=== PATIENT | female | born 1950 | race Caucasian/White ===

== ENCOUNTER 2017-06-27 01:33 | Emergency (ER) | payer BC ==
[2017-06-27] MEDS ORDERED: Sodium Chloride 0.9% 5 ML Syringe FLUSH PRN (01:44)
[2017-06-27] MEDS ORDERED: HYDROmorphone 1 MG/ML Syringe IVPUSH ONE (02:16)
[2017-06-27] MEDS ORDERED: Sodium Chloride 0.9% 1,000 ML IV ONE (02:18)
[2017-06-27] MEDS ORDERED: HYDROmorphone 1 MG/ML Syringe ONE (02:19)
--- NOTE | 2017-06-27 02:29 | EDM.PDOC ---
ED HPI GENERAL MEDICAL PROBLEM - General Chief Complaint: Abdominal Pain Stated Complaint: abd pain Time Seen by Provider: 06/27/17 02:05 Source of Information: Reports: Patient History Limitations: Reports: No Limitations - History of Present Illness INITIAL COMMENTS - FREE TEXT/NARRATIVE: Patient presents with abdominal pain for 30 hours; started evening at 8 -9pm. Started with some diarrhea and the last couple of hours has been bloody diarrhea and vomiting. Vomiting has been mostly dry heaves and not bloody. Pain is 8-9/10. Approximately ten years ago she had similar pain (but milder and lasted months) that turned out to be H pylori. She had been evaluated for two weeks checking everything before they discovered the H pylori. She was treated for it at that time. She still has her gallbladder; appendix is gone. She denies heart problems, chest pain, arm/neck/jaw pain. She smokes 1/2 ppd and has smoked for at least 40 years. She doesn't routinely use ASA or NSAIDS but took Advil two days ago for a headache. She hasn't had any recent foreign travel and denies any antibiotic use recently. Lower Abdominal Pain Score (Numeric/FACES): 2 - Related Data Allergies Allergy/AdvReac Type Severity Reaction Status Date / Time No Known Drug Allergies Allergy Cannot Verified 06/27/17 01:36 Remember Home Meds: Home Meds Xx Tumeric 300 mg PO DAILY 06/27/17 [History] Xx Vitamine B 12 200 PO DAILY 06/27/17 [History] Xxmagnesium 250 mg PO DAILY 06/27/17 [History] Zinc Gluconate [Zinc] 30 mg PO DAILY 06/27/17 [History] ED ROS GENERAL - Review of Systems Review Of Systems: See Below Constitutional: Reports: Chills. Denies: Fever HEENT: Denies: Throat Pain, Vision Change Respiratory: Denies: Shortness of Breath, Cough Cardiovascular: Denies: Chest Pain, Lightheadedness, Syncope GI/Abdominal: Reports: Abdominal Pain, Bloody Stool, Diarrhea, Vomiting. Denies : Hematemesis : Denies: Dysuria, Flank Pain Musculoskeletal: Denies: Neck Pain, Shoulder Pain, Arm Pain Skin: Denies: Cyanosis, Jaundice, Mottled, Diaphoresis Neurological: Denies: Confusion, Headache, Seizure, Syncope, Trouble Speaking, Difficulty Walking Psychiatric: Reports: Anxiety. Denies: Agitation ED EXAM, GI/ABD - Physical Exam Exam: See Below Exam Limited By: No Limitations General Appearance: Alert, WD/WN, Mild Distress Eyes: Bilateral: Normal Appearance, EOMI Ears: Normal External Exam, Hearing Grossly Normal Nose: Normal Inspection, No Blood Throat/Mouth: Normal Inspection, Normal Lips, Normal Voice, No Airway Compromise Head: Atraumatic, Normocephalic Neck: Full Range of Motion Respiratory/Chest: No Respiratory Distress, Lungs Clear, Normal Breath Sounds, No Accessory Muscle Use Cardiovascular: Normal Peripheral Pulses, Regular Rate, Rhythm, No Murmur GI/Abdominal Exam: Normal Bowel Sounds, Soft, No Organomegaly, No Distention, Tender (throughout; worse epigastric and right side) Rectal (Female) Exam: Bloody Stool (dark red/maroon color), Heme + Stool (from sample in toilet hat) Back Exam: No: CVA Tenderness (L), CVA Tenderness (R) Extremities: Normal Inspection, Normal Range of Motion, Non-Tender, No Pedal Edema Neurological: Alert, Oriented, Normal Cognition, No Motor/Sensory Deficits Psychiatric: Normal Affect, Normal Mood Skin Exam: Warm, Dry, Intact, No Rash, Pallor (mild pallor possible but not sure of her baseline) Course - Vital Signs Last Recorded V/S: Last Vital Signs Temp 98.6 F 06/27/17 01:35 Pulse 64 06/27/17 03:00 Resp 22 H 06/27/17 02:30 BP 139/60 06/27/17 03:00 Pulse Ox 100 06/27/17 02:30 - Orders/Labs/Meds Orders: Active Orders 24 hr Category Date Time Status Abdomen Pelvis w Cont [CT] Stat Exams 06/27/17 02:20 Ordered OVA & PARASITES Stat Lab 06/27/17 02:26 Ordered STOOL CULTURE/SHIGA TOXIN [MREF] Stat Lab 06/27/17 02:26 Uncollected Sodium Chloride 0.9% [Syrex Flush] Med 06/27/17 01:44 Active 5 ml FLUSH Q8HR PRN Saline Lock Insert [OM.PC] Routine Oth 06/27/17 01:44 Ordered Medication Orders Sodium Chloride (Syrex Flush) 5 ml FLUSH Q8HR PRN PRN Reason: Keep Vein Open Labs: Laboratory Tests 06/27/17 06/27/17 06/27/17 Range/Units 01:55 01:55 01:55 WBC Cancelled Corrected WBC Cancelled RBC Cancelled Hgb Cancelled Hct Cancelled MCV Cancelled MCH Cancelled MCHC Cancelled RDW Cancelled Plt Count Cancelled MPV Cancelled Neut % (Auto) (50.0-70.0) % Lymph % (Auto) (20.0-40.0) % [place] % (Auto) (2.0-8.0) % Eos % (Auto) (1.0-3.0) % Baso % (Auto) (0.0-1.0) % Neut # (Auto) (2.5-7.0) 10^3/uL Lymph # (Auto) (1.0-4.0) 10^3/uL [place] # (Auto) (0.1-0.8) 10^3/uL Eos # (Auto) (0.1-0.3) 10^3/uL Baso # (Auto) (0.0-0.1) 10^3/uL Sodium 137 (136-145) mmol/L Potassium 3.7 (3.3-5.3) mmol/L Chloride 101 (98-115) mmol/L Carbon Dioxide 22.2 (21.0-32.0) mmol/L BUN 19 (6-25) mg/dL Creatinine 0.76 (0.51-1.17) mg/dL Est Cr Clr Drug Dosing 67.47 mL/min Estimated GFR (MDRD) > 60 mL/min Glucose 138 H (70-110) mg/dL Calcium 9.7 (8.7-10.3) mg/dL Total Bilirubin 0.5 (0.2-1.0) mg/dL AST 14 L (15-37) U/L ALT 21 (12-78) U/L Alkaline Phosphatase 68 (46-116) IU/L Total Protein 7.8 (6.4-8.2) g/dL Albumin 3.77 (3.00-4.80) g/dL Lipase 116 (73-393) U/L Specimen Type Urine Color (YELLOW) Urine Appearance (CLEAR) Urine pH (5.0-9.0) Ur Specific [place] (1.005-1.030) Urine Protein (NEGATIVE) mg/dL Urine Glucose (UA) (NEGATIVE) mg/dL Urine Ketones (NEGATIVE) mg/dL Urine Occult Blood (NEGATIVE) Urine Nitrite (NEGATIVE) Urine Bilirubin (NEGATIVE) Urine Urobilinogen (0.2-1.0) E.U./dL Ur Leukocyte Esterase (NEGATIVE) Urine RBC /HPF Urine WBC /HPF Ur Epithelial Cells /LPF Urine Bacteria (NONE TO FEW) /HPF Urine Mucus (NEGATIVE) /LPF H. pylori IgG Antibody Positive H (NEGATIVE) 06/27/17 06/27/17 Range/Units 02:25 03:35 WBC 16.3 H Corrected WBC RBC 4.63 Hgb 14.0 Hct 42.0 MCV 90.8 MCH 30.3 MCHC 33.4 RDW 13.6 Plt Count 429 H MPV 7.7 Neut % (Auto) 85.2 H (50.0-70.0) % Lymph % (Auto) 9.6 L (20.0-40.0) % [place] % (Auto) 4.8 (2.0-8.0) % Eos % (Auto) 0.2 L (1.0-3.0) % Baso % (Auto) 0.2 (0.0-1.0) % Neut # (Auto) 13.9 H (2.5-7.0) 10^3/uL Lymph # (Auto) 1.6 (1.0-4.0) 10^3/uL [place] # (Auto) 0.8 (0.1-0.8) 10^3/uL Eos # (Auto) 0.0 L (0.1-0.3) 10^3/uL Baso # (Auto) 0.0 (0.0-0.1) 10^3/uL Sodium (136-145) mmol/L Potassium (3.3-5.3) mmol/L Chloride (98-115) mmol/L Carbon Dioxide (21.0-32.0) mmol/L BUN (6-25) mg/dL Creatinine (0.51-1.17) mg/dL Est Cr Clr Drug Dosing mL/min Estimated GFR (MDRD) mL/min Glucose (70-110) mg/dL Calcium (8.7-10.3) mg/dL Total Bilirubin (0.2-1.0) mg/dL AST (15-37) U/L ALT (12-78) U/L Alkaline Phosphatase (46-116) IU/L Total Protein (6.4-8.2) g/dL Albumin (3.00-4.80) g/dL Lipase (73-393) U/L Specimen Type Urincc Urine Color Yellow (YELLOW) Urine Appearance Clear (CLEAR) Urine pH 6.0 (5.0-9.0) Ur Specific [place] 1.010 (1.005-1.030) Urine Protein Negative (NEGATIVE) mg/dL Urine Glucose (UA) Negative (NEGATIVE) mg/dL Urine Ketones Trace H (NEGATIVE) mg/dL Urine Occult Blood Trace-lysed H (NEGATIVE) Urine Nitrite Negative (NEGATIVE) Urine Bilirubin Negative (NEGATIVE) Urine Urobilinogen 0.2 (0.2-1.0) E.U./dL Ur Leukocyte Esterase Trace H (NEGATIVE) Urine RBC 0-5 /HPF Urine WBC 0-5 /HPF Ur Epithelial Cells Occasional /LPF Urine Bacteria Occasional (NONE TO FEW) /HPF Urine Mucus Few H (NEGATIVE) /LPF H. pylori IgG Antibody (NEGATIVE) Meds: Medications Generic Name Dose Route Start Last Admin Trade Name Freq PRN Reason Stop Dose Admin Sodium Chloride 5 ml 06/27/17 01:44 Syrex Flush FLUSH Q8HR PRN Keep Vein Open Discontinued Medications Generic Name Dose Route Start Last Admin Trade Name Freq PRN Reason Stop Dose Admin Ciprofloxacin 500 mg 06/27/17 05:04 06/27/17 05:11 Ciprofloxacin Hcl PO 06/27/17 05:05 500 mg ONETIME ONE Administration Hydromorphone HCl 1 mg 06/27/17 02:16 06/27/17 02:25 Dilaudid IVPUSH 06/27/17 02:17 1 mg ONETIME ONE Administration Hydromorphone HCl Confirm 06/27/17 02:19 06/27/17 02:46 Dilaudid Administered 06/27/17 02:20 Not Given Dose 1 mg .ROUTE .STK-MED ONE Sodium Chloride 1,000 mls @ 999 mls/hr 06/27/17 02:18 06/27/17 02:25 Normal Saline IV 06/27/17 03:18 999 mls/hr .BOLUS ONE Administration Iopamidol 75 ml 06/27/17 02:54 Isovue-300 (61%) IV 06/27/17 02:55 . DIRECTED PRN FOR RADIOLOGY EXAM Ondansetron HCl 4 mg 06/27/17 02:32 06/27/17 02:44 Zofran IVPUSH 06/27/17 02:33 4 mg ONETIME ONE Administration Ondansetron HCl Confirm 06/27/17 02:32 06/27/17 02:47 Zofran Administered 06/27/17 02:33 Not Given Dose 4 mg .ROUTE .STK-MED ONE Sodium Chloride 50 ml 06/27/17 03:00 06/27/17 05:11 Normal Saline FLUSH 06/27/17 03:01 50 ml ONETIME ONE Administration - Re-Assessments/Exams Free Text/Narrative Re-Assessment/Exam: 06/27/17 04:18 Dilaudid 1 mg is very successfully controlling her pain. WBC is 16.3 with 85% neut. Hg is 14.0. H pylori is positive. C diff is negative. Discussed with pt that the severe pain and red bloody stools are concerning for perforation and severe bleeding. We are waiting for CT results. 1 liter of NS IV is in. Pt tells me she had two episodes of bloody diarrhea tonight at home and has had two more in ER. 06/27/17 04:39 CT shows diffuse thickening of colonic wall consistent with colitis. I called and discussed the additional lab information of positive H pylori and WBC with Dr. Escoto the radiologist and he definitely sees colitis with no sign of ulcer perforation or free air. Infectious colitis is the most likely etiology he feels. 06/27/17 05:10 Discussed findings and treatment plan with patient and her . Will treat the colitis empirically with Cipro and she needs to follow up with her PCP for results on stool samples. She also should discuss treating her H pylori at that time. Patient is stable and appears much more comfortable now and is discharged to home. Departure - Departure Time of Disposition: 05:07 Disposition: Home, Self-Care 01 Condition: Good Clinical Impression: Infectious colitis, Hematochezia - Discharge Information Referrals: Chleo Jiang MD [Primary Care Provider] - Forms: ED Department Discharge Additional Instructions: 1. Take the Cipro as directed. 2. Drink 8 cups of water daily. 3. You can use your Hydrocodone for pain if it recurs. Take it as directed. 4. Follow up with your PCP in 3-5 days for recheck of the colitis and to discuss treatment of your H pylori. 5. Recheck immediately with your PCP or return to ER if bleeding worsens. - My Orders Last 24 Hours: My Active Orders 06/27/17 01:44 Sodium Chloride 0.9% [Syrex Flush] 5 ml FLUSH Q8HR PRN Saline Lock Insert [OM.PC] Routine 06/27/17 02:20 Abdomen Pelvis w Cont [CT] Stat 06/27/17 02:26 OVA & PARASITES Stat STOOL CULTURE/SHIGA TOXIN [MREF] Stat - Assessment/Plan Last 24 Hours: My Active Orders 06/27/17 01:44 Sodium Chloride 0.9% [Syrex Flush] 5 ml FLUSH Q8HR PRN Saline Lock Insert [OM.PC] Routine 06/27/17 02:20 Abdomen Pelvis w Cont [CT] Stat 06/27/17 02:26 OVA & PARASITES Stat STOOL CULTURE/SHIGA TOXIN [MREF] Stat
[2017-06-27] MEDS ORDERED: Ondansetron 4 MG/2 ML SDV IVPUSH ONE (02:32)
[2017-06-27] MEDS ORDERED: Ondansetron 4 MG/2 ML SDV ONE (02:32)
[2017-06-27 02:51] LABS: CHLORIDE,CL 101 mmol/L (98-115); SODIUM,NA 137 mmol/L (136-145)
[2017-06-27] MEDS ORDERED: Iopamidol 612 MG/ML 75 ML Bottle IV PRN (02:54)
[2017-06-27] MEDS: Sodium Chloride 0.9% 50 ML SDV FLUSH ONE ×2 (03:00→05:11)
[2017-06-27 03:01] VITALS: BP 139/60
[2017-06-27] MEDS ORDERED: Ciprofloxacin 500 MG Tab PO ONE (05:04)
== END 2017-06-27 05:25 | disposition home or self-care (01) ==
LOC: KA.ED 01:33
DX: A09 Infectious gastroenteritis and colitis, unspecified (principal); K92.1 Melena
CPT/HCPCS: 36415; 74177; 80053; 81001; 82270; 83690; 85025; 86318; 87045; 87046; 87177; 87209; 87324; 87899; 96361; 96374; 96375; 99284; A9270; J1170; J2405; J7030; Q9967

== ENCOUNTER 2019-02-15 23:30 | Emergency (ER) | payer MEDICARE, BC ==
[2019-02-15] MEDS ORDERED: Oxymetazoline 0.05% Nasal Spray 15 ML Bottle NAS ONE (23:46)
--- NOTE | 2019-02-15 23:55 | EDM.PDOC ---
ED HPI GENERAL MEDICAL PROBLEM - General Chief Complaint: ENT Problem Stated Complaint: nosebleed Time Seen by Provider: 02/15/19 23:46 Source of Information: Reports: Patient History Limitations: Reports: No Limitations - History of Present Illness INITIAL COMMENTS - FREE TEXT/NARRATIVE: Patient is a 68-year-old female who presents to the emergency department this evening with a complaint of nosebleed. Patient states that she's had several nosebleeds last few days, but they resolves spontaneously. Tonight, approximately 2200, she was lying in bed and felt her nose bleeding again. She placed a tissue in left nare, However, bleeding did not stop. Patient denies any trauma, bleeding disorder, anticoagulation therapy, fever, chest pain, shortness of breath, nausea, vomiting, diarrhea, or antihistamine use. Onset: Today Onset Date: 02/15/19 Onset Time: 22:00 Duration: Hour(s): Location: Reports: Other (Left nare) Severity: Mild Improves with: Reports: None Worsens with: Reports: None Context: Denies: Activity, Trauma Associated Symptoms: Denies: Chest Pain, Cough, Fever/Chills, Nausea/Vomiting, Shortness of Breath - Related Data Allergies Allergy/AdvReac Type Severity Reaction Status Date / Time No Known Drug Allergies Allergy Cannot Verified 06/27/17 01:36 Remember Home Meds: Home Meds Xx Tumeric 300 mg PO DAILY 06/27/17 [History] Xx Vitamine B 12 200 PO DAILY 06/27/17 [History] Xxmagnesium 250 mg PO DAILY 06/27/17 [History] Zinc Gluconate [Zinc] 30 mg PO DAILY 06/27/17 [History] Past Medical History HEENT History: Reports: Impaired Vision, Other (See Below) Other HEENT History: glasses Respiratory History: Reports: None, Other (See Below) Other Respiratory History: smoker x 40 years Gastrointestinal History: Reports: Helicobacter Pylori - Infectious Disease History Infectious Disease History: Reports: Chicken Pox, Helicobacter Pylori, Measles, Mumps - Past Surgical History Respiratory Surgical History: Reports: None GI Surgical History: Reports: Appendectomy Musculoskeletal Surgical History: Reports: Carpal Tunnel, Other (See Below) Other Musculoskeletal Surgeries/Procedures:: trigger finger surgery Social & Family History - Caffeine Use Caffeine Use: Reports: Coffee, Tea ED ROS ENT - Review of Systems Review Of Systems: ROS reveals no pertinent complaints other than HPI. Constitutional: Reports: No Symptoms HEENT: Reports: Nosebleed Respiratory: Reports: No Symptoms Cardiovascular: Reports: No Symptoms Endocrine: Reports: No Symptoms GI/Abdominal: Reports: No Symptoms : Reports: No Symptoms Musculoskeletal: Reports: No Symptoms Skin: Reports: No Symptoms Neurological: Reports: No Symptoms Psychiatric: Reports: No Symptoms Hematologic/Lymphatic: Reports: No Symptoms Immunologic: Reports: No Symptoms ED EXAM, ENT - Physical Exam Exam: See Below Exam Limited By: No Limitations General Appearance: Alert, WD/WN, Mild Distress Eye Exam: Bilateral Eye: Normal Inspection Nose: Active Bleeding (Left nare anterior lateral aspect persistent active bleed ). No: Foreign Body, Septal Deformity, Septal Hematoma, Septal Perforation Mouth/Throat: Normal Inspection, Normal Oropharynx Head: Atraumatic, Normocephalic Neck: Normal Inspection, Supple. No: Lymphadenopathy (L), Lymphadenopathy (R) Respiratory/Chest: No Respiratory Distress, Lungs Clear, Normal Breath Sounds, No Accessory Muscle Use, Chest Non-Tender Cardiovascular: Regular Rate, Rhythm, No Murmur GI/Abdominal: Normal Bowel Sounds, Soft, Non-Tender Extremities: Normal Inspection, No Pedal Edema Neurological: Alert, Oriented, Normal Cognition Psychiatric: Anxious Skin: Warm, Dry, Intact, Normal Color, No Rash Lymphatic: No Adenopathy ED ENT PROCEDURES - Epistaxis Procedure Indication: Epistaxis, Uncontrolled Recent anticoagulants/antiplatlets: No Uncontrolled HTN: No Recent septal/nasal surgery: No Site of bleeding: Left Nare, Anterior Clearing of clots: Patient Blew Nose Topical Meds: Phenylephrine Ice pack to area: Yes Anterior Packing: Inflatable Nasal Tampon Complications: No Course - Vital Signs Last Recorded V/S: Last Vital Signs Temp 98.5 F 02/15/19 23:30 Pulse 80 02/15/19 23:30 Resp 20 02/15/19 23:30 BP 132/69 02/15/19 23:30 Pulse Ox 99 02/15/19 23:30 - Orders/Labs/Meds Orders: Active Orders 24 hr Category Date Time Status Oxymetazoline [Afrin Original 0.05% Nasal [place]] Med 02/15/19 23:46 Once 1 ml ZOFIA ONETIME ONE - Re-Assessments/Exams Free Text/Narrative Re-Assessment/Exam: 02/16/19 00:00 Following insertion into the left nare with inflatable Rhino Rocket, hemostasis was obtained. Patient was watched for 20 minutes, and consideration for discharge was made. Rhino Rocket will be left in place and patient will follow- up tomorrow at [facility]. Patient afebrile, vital signs stable, tolerated procedure well. Departure - Departure Time of Disposition: 00:07 Disposition: Home, Self-Care 01 Condition: Good Clinical Impression: Epistaxis - Discharge Information Instructions: Nosebleed, [id number] Referrals: Chelo Jiang MD [Physician] - Additional Instructions: Follow-up at [facility] tomorrow for evaluation and possible removal of Rhino Rocket. Return to emergency department sooner if symptoms continue or worsen - My Orders Last 24 Hours: My Active Orders 02/15/19 23:46 Oxymetazoline [Afrin Original 0.05% Nasal [place]] 1 ml ZOFIA ONETIME ONE - Assessment/Plan Last 24 Hours: My Active Orders 02/15/19 23:46 Oxymetazoline [Afrin Original 0.05% Nasal [place]] 1 ml ZOFIA ONETIME ONE Assessment:: Epistaxis Plan: Follow-up tomorrow at [facility]
[2019-02-16 00:04] VITALS: BP 121/62
== END 2019-02-16 00:25 | disposition home or self-care (01) ==
LOC: KA.ED 23:30
DX: R04.0 Epistaxis (principal); Z79.899 Other long term (current) drug therapy
CPT/HCPCS: 30903; 99283-25